=== PATIENT | female | born 1965 | race Caucasian/White ===

== ENCOUNTER 2019-05-11 00:07 | Emergency (ER) | payer MEDICAID ==
[~2019-05-11] VITALS: Ht 147.3 cm; Wt 66.7 kg
[~2019-05-11 00:07] MED LIST: CEPH-443 PO; IBUP-1542 PO
[2019-05-11 00:09] VITALS: Ht 147.3 cm; Wt 66.7 kg
[2019-05-11] MEDS ORDERED: KETOROLAC 15 MG INJ IV STA (00:31)
[2019-05-11] MEDS ORDERED: SOD CHLORIDE 0.9% 1,000 ML IV STA (00:31)
[2019-05-11] MEDS ORDERED: SOD CHLORIDE 0.9% 1,000 ML IV ONE (02:00)
[2019-05-11] MEDS ORDERED: CEFTRIAXONE 1 GM/50 ML (PMX) 50 ML IVPB ONE (02:00)
[2019-05-11 03:09] VITALS: BP 98/54; PULSE 94; RESP 18
== END 2019-05-11 03:10 | disposition home or self-care (01) ==
LOC: E/R 00:07
DX: N12 Tubulo-interstitial nephritis, not specified as acute or chronic (principal); E86.0 Dehydration
CPT/HCPCS: 36415; 80053; 81003; 81025; 83690; 85025; 87086; 96361; 96365; 96375; J0696; J1885; J7030; Z7502; 93005